=== PATIENT | male | born 1955 | race Caucasian/White ===

== ENCOUNTER 2016-10-10 09:12 | Day surgery (SDC) | payer MEDICAID ==
[~2016-10-10] VITALS: Ht 170.2 cm; Wt 45.4 kg
[~2016-10-10 09:12] MED LIST: FUROSEMIDE20 MG PO; K-DUR20 MEQ PO; PROAIR HFA8.5 GM INH; ULTRAM50 MG PO; ZYLOPRIM300 MG PO
[2016-10-10 10:13] LABS: EOSINOPHILS 10.6 % (0-7); HEMATOCRIT 28.2 % (42.0-54.0); HEMOGLOBIN 9.3 g/dL (13.5-17.5); LYMPHOCYTES 48.4 % (15-50); MCH 39.2 pg (26.0-34.0); MEAN PLATELET VOLUME 12.3 fL (7.4-10.4); MONOCYTES 7.4 % (2-11); NEUTROPHILS 32.6 % (40-80); RBC 2.37 10x6/uL (4.20-6.10); WBC 3.1 10x3/uL (4.8-10.8)
[2016-10-10 10:14] VITALS: BP 86/53; Ht 170.2 cm; Wt 45.4 kg
[2016-10-10 10:31] LABS: APTT 26.2 SECONDS (22.8-39.4); INR 1.1 (0.85-1.17); PLATELET COUNT 27 10x3/uL (130-400)
[2016-10-10 10:37] LABS: CALC OSMOLALITY 272 mosm/kg (275-300); CALCIUM 8.4 mg/dL (8.5-10.1); CARBON DIOXIDE 26.6 mmol/L (21.0-32.0); CHLORIDE - SERUM 104 mmol/L (98-107); CREATININE - SERUM 0.6 mg/dL (0.6-1.3); GLUCOSE 98 mg/dL (74-106); POTASSIUM - SERUM 3.9 mmol/L (3.5-5.1); SODIUM 137 mmol/L (136-145); UREA NITROGEN 9 mg/dL (7-18); eGFR NON AFRICAN AMERICAN > 90 mL/min (90-120)
--- NOTE | 2016-10-10 10:52 | NUR ---
1035 REPORTED PLATELET LEVEL OF [address] ARTIS, NEW ORDER RECEIVED FOR ONE UNIT OF PLATELETS. 1050 SPOKE WITH PT REGARDING PLATELETS. PT STATES HE HAD ALLERGIC REACTION TO PLATELETS IN JULY, STATES HE HAD HIVES AND SHORTNESS OF BREATH. DR ARTIS NOTIFIED AND ORDER RECEIVED FOR BENADRYL 25 MG IV, AND DO NOT GIVE PLATELETS AT THIS TIME BUT HAVE BLOOD BANK GET THEM READY. 1051 CARLOS ENRIQUE IN BLOOD BANK NOTIFIED THAT DR ARTIS DOES NOT WANT PLATELETS TRANSFUSED AT THIS TIME BUT TO PROCEED WITH GETTING PLATELETS READY.
[2016-10-10 10:57] LABS: PLATELET ESTIMATE DECREASED
--- NOTE | 2016-10-10 11:06 | NUR ---
1106 IV FLUIDS CHANGED TO NS.
[2016-10-10] MEDS ORDERED: ULTRAM50 MG PO (14:15)
--- NOTE | 2016-10-10 14:59 | NUR ---
1455 BACK FROM PORT PLACEMENT. RESP EVEN AND NONLABORED. RT CHEST DRESSING C/D/I.
--- NOTE | 2016-10-10 17:00 | NUR ---
STATES "[facility]" IS TAKING HIM HOME AND MEETING HIM IN THE [place]. DISCHARGED VIA .
--- NOTE | 2016-10-18 16:25 | OP ---
PATIENT NAME: KADIE GONZALEZ MEDICAL RECORD: [id number] :53 LOCATION:D[facility] ADMISSION DATE: SURGEON: LEX ARTIS MD DATE OF OPERATION: 10/10/2016 PREOPERATIVE DIAGNOSES: 1. Chronic lymphocytic leukemia. 2. Protein deficient malnutrition with a BMI 15.5. 3. Tobacco dependence syndrome. 4. Patient had thrombocytopenia. POSTOPERATIVE DIAGNOSES: 1. Chronic lymphocytic leukemia. 2. Protein deficient malnutrition with a BMI 15.5. 3. Tobacco dependence syndrome. PROCEDURE: Right subclavian vein port placement with fluoroscopic interpretation. SURGEON: Lex Artis MD OPERATIVE PROCEDURE: The patient's right chest was prepped and draped in sterile fashion. A needle was used to cannulate the right subclavian vein. The guidewire was advanced with ease. Fluoro was used to note that the wire was in good position in the venous system. A skin incision was then made on the right lateral chest and a subcutaneous pouch was made overlying the pectoral fascia. The catheter was tunneled between this pouch and the wire exit site. The port was sutured to the pectoral fascia using interrupted 2-0 Prolenes times 2. The port was then cut with a beveled tip at 19 cm. The dilator trocar device was placed over the wire and the wire and dilator were removed. The catheter tip was advanced through the trocar with ease and the trocar was removed. Fluoro was used to note that the catheter tip was in good position in the venous system. At this point, the subcutaneous tissues were reapproximated with interrupted 3-0 Vicryls and the skin was closed with subcutaneous 5-0 Monocryl. The port aspirated nonpulsatile dark blood and flushed easily with heparinized saline. The wound was then dressed with a pressure dressing. COMPLICATIONS: None. CONDITION: Stable. ANESTHESIA: General endotracheal. BLOOD LOSS: Minimal. TRANSINT:[id number] Voice Confirmation ID: [id number] DOCUMENT ID: [id number] OPERATIVE REPORT [id number] LISA,TOM LEX ARTIS MD at 1624 CC: JAOSN LEON MD [id number] DICTATION DATE: 10/10/16 1419 NEEDLE LOOM WEAVER: 10/10/16 [id number] [facility] 10/10/16 [facility] [address] [place] [address]
== END 2016-10-10 17:00 | disposition home or self-care (01) ==
LOC: D.OPS 09:12 → D.PAN 12:15 → D.OPS 12:15
PROVIDERS: Anesthesiology
DX: C91.10 Chronic lymphocytic leukemia of B-cell type not having achieved remission (principal); E46 Unspecified protein-calorie malnutrition; Z68.1 Body mass index [BMI] 19.9 or less, adult; F17.200 Nicotine dependence, unspecified, uncomplicated